=== PATIENT | male | born 1940 | race Caucasian/White ===

== ENCOUNTER → 2016-07-22 | Outpatient (CLI) | payer OTHER | LOC: LAB 09:03 | PROVIDERS: ATTEND Urology | DX: C61 Malignant neoplasm of prostate (principal) | CPT/HCPCS: 36415; 84153 ==

== ENCOUNTER → 2016-10-22 | Outpatient (CLI) | payer OTHER ==
--- NOTE | 2016-10-22 15:48 | DI ---
CERVICAL SPINE SERIES, 10/22/2016 1:40 PM: Clinical History: Neck pain. Previous Exam: None at this facility. 3 routine upright views are submitted. The vertebral bodies are normal in height and size. There is d isc space narrowing at C5-6 through C7-T1. Anterior and posterior bony proliferative changes are pres ent at C5-6 and C6-7. Posterior alignment is normal. There are arthritic changes in all of the zygapo physeal joints bilaterally as well as the uncovertebral joints bilaterally at C5-6 and C6-7. C1 artic ulates normally with C2 and the occiput. Prevertebral soft tissue planes are normal. Readin. Chronic disc space narrowing from C5-6 through C7-T1. Degenerative arthritic changes are present in the uncovertebral joints bilaterally at C5-6 and C6-7. 2. Degenerative arthritic changes are present in all of the zygapophyseal joints between C2-3 throug h C7-T1.
--- NOTE | 2016-10-22 15:50 | DI ---
THORACIC SPINE SERIES, 10/22/2016 1:40 PM: Clinical History: Acute bilateral thoracic back pain. Previous Exam: None at this facility. 2 routine upright views are submitted along with a right lateral swimmer's view. The vertebral bodies are of normal height and size with normal disc spaces except at T4-5 through T6-7. Pedicles and post erior elements are normal. There are no paravertebral masses. Reading: There is chronic disc space narrowing from C4-5 through T6-7. The remainder of the thoracic spine ser ies is normal.
== END ==
LOC: RAD 14:01
PROVIDERS: ATTEND Family Medicine
DX: M54.2 Cervicalgia (principal); M54.6 Pain in thoracic spine; R07.81 Pleurodynia; M48.03 Spinal stenosis, cervicothoracic region; M47.813 Spondylosis without myelopathy or radiculopathy, cervicothoracic region
CPT/HCPCS: 72040; 72070

== ENCOUNTER → 2016-11-24 | Outpatient (CLI) | payer OTHER ==
--- NOTE | 2016-11-24 10:29 | DI ---
MRI LUMBAR SPINE W/O CN,11/24/2016 8:39 AM: Clinical History: Acute bilateral low back pain without sciatica. Previous Exam: None at this facility. Findings: Multiplanar MR images are obtained through the lumbar spine without contrast, and demonstrate diffuse degenerative disc disease throughout. Marrow signal is preserved except for a few areas of edema and a few areas of intraosseous lipomas. There is a 4.4 x 1.6 cm simple cyst noted within the interpolar region of the right kidney. The major vascular flow voids are unremarkable. The distal spinal cord is normal with a normal conus at the L1 level. There is atrophy of the psoas muscles and the paraspinal musculature. Individual intervertebral disc spaces: L1/2: No significant stenosis. L2/3: No significant stenosis. L3/4: There is disc desiccation, a broad-based disc bulge with annular fissuring and facet and ligame ntum flavum hypertrophy contributing to moderate to severe central canal stenosis and moderate neurof oraminal narrowing. L4/5: There is disc desiccation, annular fissuring and a broad-based disc bulge with disc desiccation and annular fissuring. There is facet and ligamentum flavum hypertrophy contributing to moderate heladio tral canal stenosis with moderate to severe bilateral neuroforaminal narrowing. L5/S1: There is disc desiccation, a broad-based disc bulge and facet and ligamentum flavum hypertroph y contributing to severe left and moderate to severe right neuroforaminal narrowing. Impression: L3/4: There is disc desiccation, a broad-based disc bulge with annular fissuring and facet and ligame ntum flavum hypertrophy contributing to moderate to severe central canal stenosis and moderate neurof oraminal narrowing. L4/5: There is disc desiccation, annular fissuring and a broad-based disc bulge with disc desiccation and annular fissuring. There is facet and ligamentum flavum hypertrophy contributing to moderate heladio tral canal stenosis with moderate to severe bilateral neuroforaminal narrowing. L5/S1: There is disc desiccation, a broad-based disc bulge and facet and ligamentum flavum hypertroph y contributing to severe left and moderate to severe right neuroforaminal narrowing.
== END ==
LOC: MRI 08:32
PROVIDERS: ATTEND Family Medicine
DX: M54.5 Low back pain (principal); M51.16 Intervertebral disc disorders with radiculopathy, lumbar region
CPT/HCPCS: 72148

== ENCOUNTER → 2016-11-25 | Outpatient (CLI) | payer OTHER ==
--- NOTE | 2016-11-25 13:07 | DI ---
MRI THORACIC SPINE W/O CN,11/25/2016 8:38 AM: Clinical History: Lower thoracic spine pain. Previous Exam: None at this facility. Findings: Multiplanar MR images are obtained through the thoracic spine without contrast. There is a 4.5 cm simple cyst within the right kidney. The lung bases are clear. Vascular structures are unremarkable. There is some mild anterior wedging of the thoracic vertebral bodies. The spinal cord descends normally with normal course, caliber and signal characteristics. 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 The vitamin E marker is over the T8/T9 level. There is no significant broad-based disc bulge eccentri c at T8/T9 where there is a small broad-based disc bulge causing no significant stenosis. Paraspinal musculature is unremarkable. The major vascular flow voids are unremarkable. Impression: Small broad-based disc bulge T8/9 without significant stenosis.
== END ==
LOC: MRI 08:34
PROVIDERS: ATTEND Family Medicine
DX: M54.6 Pain in thoracic spine (principal); C61 Malignant neoplasm of prostate; M47.814 Spondylosis without myelopathy or radiculopathy, thoracic region
CPT/HCPCS: 72146

== ENCOUNTER → 2016-11-26 | Outpatient (CLI) | payer OTHER ==
--- NOTE | 2016-11-26 09:33 | DI ---
MRI CERVICAL SPINE W/O CN,11/26/2016 8:36 AM: Clinical History: Prostate cancer Previous Exam: None at this facility. Findings: Multiplanar MR images are obtained through the cervical spine with sagittal and coronal reconstructio ns, and demonstrate diffuse degenerative changes throughout the cervical spine. The spinal cord desce nds normally with normal course, caliber and signal characteristics. Marrow signal is preserved. There are no lesions identified. The posterior fossa is unremarkable as well. Paraspinal soft tissues are unremarkable. The major vascular flow voids are also unremarkable. Individual intervertebral disc spaces: C2/C3: No significant stenosis. C3/4: There is a broad-based disc bulge with uncovertebral joint osteophyte formation and facet hyper trophy contributing to moderate to severe right neuroforaminal narrowing with mild to moderate left n eural foraminal narrowing and mild central canal stenosis. C4/5: There is disc desiccation and a broad-based disc bulge with some mild uncovertebral joint osteo phyte formation and some mild facet hypertrophy contributing to mild central canal stenosis without s ignificant neural foraminal narrowing. C5/6: There is disc desiccation, loss of intervertebral disc height and a broad-based disc bulge cont ributing to mild to moderate central canal stenosis with moderate bilateral neural foraminal narrowin g. C6/7: There is disc desiccation, annular fissuring and a very tiny central disc extrusion. There is m ild central canal stenosis and mild bilateral neural foraminal narrowing. C7/T1: No significant stenosis. Impression: C3/4: There is a broad-based disc bulge with uncovertebral joint osteophyte formation and facet hyper trophy contributing to moderate to severe right neuroforaminal narrowing with mild to moderate left n eural foraminal narrowing and mild central canal stenosis. C4/5: There is disc desiccation and a broad-based disc bulge with some mild uncovertebral joint osteo phyte formation and some mild facet hypertrophy contributing to mild central canal stenosis without s ignificant neural foraminal narrowing. C5/6: There is disc desiccation, loss of intervertebral disc height and a broad-based disc bulge cont ributing to mild to moderate central canal stenosis with moderate bilateral neural foraminal narrowin g. C6/7: There is disc desiccation, annular fissuring and a very tiny central disc extrusion. There is m ild central canal stenosis and mild bilateral neural foraminal narrowing.
== END ==
LOC: MRI 08:32
PROVIDERS: ATTEND Family Medicine
DX: C61 Malignant neoplasm of prostate (principal); M50.11 Cervical disc disorder with radiculopathy, high cervical region; M50.121 Cervical disc disorder at C4-C5 level with radiculopathy; M50.122 Cervical disc disorder at C5-C6 level with radiculopathy; M50.123 Cervical disc disorder at C6-C7 level with radiculopathy
CPT/HCPCS: 72141

== ENCOUNTER → 2016-11-27 | Outpatient (CLI) | payer OTHER | LOC: LAB 08:43 | PROVIDERS: ATTEND Urology | DX: C61 Malignant neoplasm of prostate (principal) | CPT/HCPCS: 36415; 84153 ==

== ENCOUNTER → 2017-01-15 | Outpatient (CLI) | payer OTHER | LOC: LAB 08:46 | PROVIDERS: ATTEND Urology | DX: C61 Malignant neoplasm of prostate (principal) | CPT/HCPCS: 36415; 84153 ==

== ENCOUNTER 2019-06-01 17:20 | Observation (INO) ==
[2019-06-01] MEDS ORDERED: PANTOPRAZOLE IV 40 MG VIAL IVP ONE (17:36)
[2019-06-01] MEDS ORDERED: Sodium Chloride 0.9% 1,000 ML PRIMARY IV ONE (17:37)
[2019-06-01 18:06] LABS: BASOPHILS # (AUTO) 0.01 10*3/UL; BASOPHILS % (AUTO) 0.2 % (0-1); EOSINOPHILS # (AUTO) 0.09 10*3/UL; Hematocrit [HCT] 36.8 % (42.0-52.0); Hemoglobin [HGB] 12.5 g/dL (14.0-18.0); LYMPHOCYTES # (AUTO) 1.58 10*3/uL; MEAN CORPUSCULAR VOLUME 102.2 FL (80-90); MEAN PLATELET VOLUME 8.8 FL (7.4-12.2); MONOCYTES # (AUTO) 0.43 10*3/UL (0.3-0.8); MONOCYTES % (AUTO) 9.5 % (5-15); NEUTROPHILS # (AUTO) 2.39 10*3/UL; NEUTROPHILS % (AUTO) 52.9 % (50-80)
[2019-06-01 18:09] LABS: PLATELET MORPHOLOGY COMMENT NORMAL MORPHOLOGY (NORM); RBC MORPHOLOGY COMMENT NORMAL MORPHOLOGY (NORM); WBC MORPHOLOGY COMMENT NORMAL MORPHOLOGY (NORM)
[2019-06-01 18:17] LABS: BLOOD UREA NITROGEN 15 mg/dL (7-22); BUN/CREATININE RATIO 13.63 (6-20); SERUM ALBUMIN 4.1 g/dL (3.5-4.8)
[2019-06-01] MEDS ORDERED: Acetaminophen 1000mg Inj 1,000 MG/100 ML VIAL IV PRN (19:21)
[2019-06-01] MEDS ORDERED: ONDANSETRON 4 MG/2 ML VIAL IVP PRN (19:21)
[2019-06-01] MEDS: Lactated Ringers 1,000 ML PRIMARY IV SCH (20:30)
[2019-06-01 22:19] LABS: Hemoglobin [HGB] 12.8 g/dL (14.0-18.0); MEAN CORPUSCULAR HGB CONC 33.7 g/dL (33-37); MEAN CORPUSCULAR VOLUME 103.3 FL (80-90); MEAN PLATELET VOLUME 8.7 FL (7.4-12.2); RED BLOOD COUNT 3.68 10^6/uL (4.70-6.10)
[2019-06-01] MEDS ORDERED: predniSONE Tab 20 MG TAB PO ONE (22:28)
[2019-06-01] MEDS ORDERED: diphenhydrAMINE 25 MG CAPSULE PO ONE (22:28)
[2019-06-02] MEDS: Lactated Ringers 1,000 ML PRIMARY IV SCH ×3 (04:06→21:53)
[2019-06-02] MEDS: predniSONE Tab 20 MG TAB PO SCH ×3 (04:43→17:39)
[2019-06-02] MEDS: diphenhydrAMINE 25 MG CAPSULE PO SCH ×3 (04:44→17:40)
[2019-06-02] MEDS: LEVOTHYROXINE 75 MCG TABLET PO SCH (04:44)
[2019-06-02 04:55] LABS: BASOPHILS # (AUTO) 0.01 10*3/UL; BASOPHILS % (AUTO) 0.2 % (0-1); EOSINOPHILS # (AUTO) 0 10*3/UL; EOSINOPHILS % (AUTO) 0 % (0-8); Hematocrit [HCT] 35.4 % (42.0-52.0); LYMPHOCYTES # (AUTO) 1.02 10*3/uL; MEAN CORPUSCULAR HGB CONC 33.9 g/dL (33-37); MEAN CORPUSCULAR VOLUME 101.7 FL (80-90); MEAN PLATELET VOLUME 8.6 FL (7.4-12.2); MONOCYTES # (AUTO) 0.13 10*3/UL (0.3-0.8); MONOCYTES % (AUTO) 2.6 % (5-15); NEUTROPHILS # (AUTO) 3.85 10*3/UL; NEUTROPHILS % (AUTO) 76.5 % (50-80); RED BLOOD COUNT 3.48 10^6/uL (4.70-6.10)
[2019-06-02 04:56] LABS: PLATELET MORPHOLOGY COMMENT NORMAL MORPHOLOGY (NORM); RBC MORPHOLOGY COMMENT NORMAL MORPHOLOGY (NORM); WBC MORPHOLOGY COMMENT NORMAL MORPHOLOGY (NORM)
[2019-06-02 05:05] LABS: BLOOD UREA NITROGEN 13 mg/dL (7-22); BUN/CREATININE RATIO 11.81 (6-20)
[2019-06-02] MEDS ORDERED: CYANOCOBALAMIN (VITAMIN B-12) 1,000 MCG TABLET.ER PO SCH (09:00)
[2019-06-02] MEDS ORDERED: Multivitamin Tab 1 TAB PO SCH (09:00)
[2019-06-02] MEDS: PANTOPRAZOLE IV 40 MG VIAL IVP SCH (09:39)
[2019-06-02 14:21] LABS: Hematocrit [HCT] 37.1 % (42.0-52.0); Hemoglobin [HGB] 12.6 g/dL (14.0-18.0); MEAN CORPUSCULAR VOLUME 106 FL (80-90); RED BLOOD COUNT 3.49 10^6/uL (4.70-6.10)
[2019-06-02 14:22] LABS: MEAN CORPUSCULAR HGB CONC 33.9 g/dL (33-37); MEAN PLATELET VOLUME 6.5 FL (7.4-12.2)
[2019-06-02] MEDS: HYDROCORTISONE 25 MG SUPPOSITORY RECTAL SCH (21:21)
[2019-06-03] MEDS: LEVOTHYROXINE 75 MCG TABLET PO SCH (04:45)
[2019-06-03] MEDS: Lactated Ringers 1,000 ML PRIMARY IV SCH (05:31)
[2019-06-03 05:43] LABS: Hematocrit [HCT] 34.3 % (42.0-52.0); Hemoglobin [HGB] 11.5 g/dL (14.0-18.0); MEAN CORPUSCULAR HGB CONC 33.6 g/dL (33-37); MEAN CORPUSCULAR VOLUME 106 FL (80-90); RED BLOOD COUNT 3.23 10^6/uL (4.70-6.10)
[2019-06-03] MEDS: PANTOPRAZOLE IV 40 MG VIAL IVP SCH (08:36)
[2019-06-03] MEDS: HYDROCORTISONE 25 MG SUPPOSITORY RECTAL SCH (08:36)
[2019-06-03 10:45] LABS: VITAMIN B12 SERUM 504 ng/L (180 - 914)
[2019-06-03 13:46] VITALS: BP 102/56; RESP 16; TEMP 97.3; O2SAT 95
[2019-06-03 15:03] LABS: Hematocrit [HCT] 34.6 % (42.0-52.0); Hemoglobin [HGB] 11.6 g/dL (14.0-18.0); MEAN CORPUSCULAR HGB CONC 33.4 g/dL (33-37); MEAN CORPUSCULAR VOLUME 105 FL (80-90); RED BLOOD COUNT 3.28 10^6/uL (4.70-6.10)
[2019-06-03 15:04] LABS: MEAN PLATELET VOLUME 6.5 FL (7.4-12.2)
== END 2019-06-03 16:30 | disposition home or self-care (01) ==
LOC: ER 17:20 → MED/SURG 17:20
PROVIDERS: ADMIT Family Medicine; ATTEND Family Medicine